=== PATIENT | female | born 1995 ===

== ENCOUNTER → 2016-09-09 | Outpatient (CLI) | payer BC ==
[~2016-09-09] MED LIST: CODE-54 PO; PREN1TAB79 PO; SULF-221 PO
[2016-09-09 19:31] VITALS: BP 134/1
--- NOTE | 2016-09-09 19:31 | Urgent Care T Sheet Gen (E) ---
Intake General Temperature (Fahrenheit): 97.8 Pulse: 84 Blood Pressure Systolic: 134 Blood Pressure Diastolic: 1 Respirations: 18 SPO2: 97 Chief Complaint: bladder infection Source: Patient Exam Limitations: No limitations History of Present Illness Initial Comments Pt states her symptoms started about 4 days ago. It first felt only uncomfortable to urinate, then it became more burning and she's had some pain in her abdomen during urination also. She reports increased frequency and urgency as well. No fever, chills, or malaise, no back pain. She has been drinking more fluids, and cranberry juice, but this hasn't helped. Pt has had UTIs in the past, with the last one about 2 months ago. She took her antibiotic and it cleared up without any problems. She is recently , but says she both urinates and showers after intercourse, and she has been taking cranberry capsules, washing with special soap, and always wipes front to back. Her mother, grandmother, and aunt all get urinary tract infections frequently, so she thinks this runs in the family. Onset & Duration: Days (4) Timing: Still present Severity: Moderate Similar Sympotms Previously: Yes (with UTI) Allergies: Coded Allergies: No Known Drug Allergies (Unverified , 05/12/12) Home Meds Active Scripts Acetaminophen/Codeine (Tylenol W/Codeine #3 (300mg/30mg))1 Tab Tablet1 Tab PO Q4H #20 Prov:LORRAINE CAPUTO MD 10/07/12 Reported Medications Vits W-Ca,Fe,Fa(<1MG) ( Vitamins)1 Each Tablet1 Ea PO DAILY 05/13/12 Respiratory Constitutional Symptoms: See HPINo Chills, No Fever, No Malaise EENTM: No symptoms reported Respiratory: No symptoms reported Cardiovascular: No symptoms reported Gastrointestinal/Abdominal: See HPI Abdominal pain (during urination only, very brief)No Nausea Genitourinary: See HPI Dysuria Frequency Skin: No symptoms reported Neurological: No symptoms reported All Other Systems Reviewed Remaining Systems: All other systems reviewed with negative findings Past Tndbibp-Ihkvim-Yiznod Hx Patient's Social History Alcohol Use: Denies Use Smoking Status: Current every day smoker Surgeries/Hospitalizations Hospitalization/Surgery Hx: NONE Respiratory Respiratory History: None Cardiovascular Cardiovascular History: None Reproductive System Sexually Transmitted Diseases: No Gastrointestinal GI/Endocrine History: None Diabetes Diabetes: No HEENT Impaired Vision: None Hearing Impaired: None Psychosocial Behavior Disorders: None Physical Exam Physical Exam General Appearance: WD/WN No apparent distress Eyes, Ears, Nose, Throat Ex: PERRL/EOMI Neck Exam: Non tender Full range of motion Supple Respiratory Exam: Chest non-tender Lungs clear Normal breath sounds No respiratory distress Cardiovascular Exam: Regular rate, rhythm No murmur GI/ Exam: Non tender (pt just reports she feels urgency with palpation) No organomegaly Normal bowel sounds No distention Back Exam: Normal Inspection No CVA tenderness No vertebral tenderness Skin Exam: Normal color Warm/dry/intact No rashes Neurologic/Psychiatric Exam: Oriented times 4 Mood/affect nml Progress/Orders Lab Results Labs Results: UA UA Lab Results ph 6.5 Specific [place] 1.015 Protein neg Glucose (UA) neg Ketones neg Blood moderate ++ Nitrates neg Bilirubin neg Urobilirubin 0.2 Leukocyte Esterase moderate ++ Departure Urgent Care Impression Chief Complaint: bladder infection Impression: Primary Impression: Acute cystitis Qualified Code: N30.01 - Acute cystitis with hematuria Departure Disposition: HOME OR SELF-CARE Condition: Stable Referrals: GREG GARCIA MD (PCP) Additional Instructions: Discussed with pt that this appears to be a bacterial infection starting, but not affecting her kidneys from history and exam. We will start antibiotics, and if she is not improving within a day or two, or if she is not completely better by the end of the antibiotics, I want her to follow up for different antibiotics or extending the course of these, but as she had a good response to her previous treatment, I don't anticipate this. If she is having burning or bladder spasms in the next day or so, I recommend trying the pyridium, which she has used before, for a day or two. She can continue the same measures for prevention, as these should be helpful, and if she continues to get UTIs despite this, I want her to follow up with her PCP for consideration of other prophylaxis. If she is worsening with fever, chills, increasing pain, blood, or other concerning symptoms, I want her to follow up urgently. Pt states understanding and agrees to plan. All questions answered. Scripts Sulfamethoxazole/Trimethoprim (Sulfamethoxazole/Trimethoprim DS 800mg/160mg)1 Each Tablet1 Tab PO BID #10 TAB Prov:ROSS BARR 09/09/16 End of report . ROSS BARR Sep 09, 2016 19:31
== END ==
LOC: MHUC 18:56
PROVIDERS: ATTEND Physician Assistant Medical
DX: N30.01 Acute cystitis with hematuria (principal)
CPT/HCPCS: 81002; 99213